=== PATIENT | female | born 1965 | race Caucasian/White ===

== ENCOUNTER 2017-10-01 17:21 | Emergency (ER) | payer SELFPAY ==
[~2017-10-01] VITALS: Ht 177.8 cm; Wt 115.0 kg
[2017-10-01 17:41] VITALS: BP 142/75; PULSE 103; RESP 20; TEMP 99.5; O2SAT 99
[2017-10-01] MEDS ORDERED: BUME1TAB PO (18:14)
[2017-10-01] MEDS ORDERED: LIDOCAINE HCL 2% 50 ML VIAL NERV BLOCK ONE (18:30)
[2017-10-01] MEDS ORDERED: CLINDAMYCIN 600 MG/NS PREMIX 50 ML IV ONE (18:45)
[2017-10-01] MEDS ORDERED: SODIUM CHLOR 0.9% 1000 ML INJ 1,000 ML IV ONE (18:45)
[2017-10-01] MEDS ORDERED: CLIN300C5 PO (19:19)
[2017-10-01] MEDS ORDERED: DICL75TA PO (19:21)
--- NOTE | 2017-10-01 19:22 | PD ---
HPI Chief Complaint: Skin Problem Time Seen by Provider: 18:04 Travel History International Travel<30 days: No Contact w/Intl Traveler<30days: No History of Present Illness HPI 52-year-old female presents emergency department with a lesion to her left upper back for 2 weeks. States that she does have a history of abscesses and believes this may be an abscess. Patient states that it started off as a small pruritic lesion and has enlarged to the size it is today. Patient denies fevers or chills, denies nausea, vomiting, diarrhea. States she has been taking the maximum dose of excedrin for several days. She has a history of MRSA , COPD. She does not have a primary care physician. She does not take steroids. PFSH Past Medical History COPD: Yes Diminished Hearing: No Respiratory: Yes (COPD) Integumentary: Yes (MRSA) Tetanus Vaccination: > 5 Years Influenza Vaccination: No ?: Not : 0 Para: 0 Past Surgical History Hysterectomy: Yes Social History Alcohol Use: No Tobacco Use: Yes (1 pack per day) Substance Use: No Allergies-Medications (Allergen,Severity, Reaction): Coded Allergies: tetanus toxoid, adsorbed (Verified Allergy, Severe, ARM SWELLING, 10/01/17) codeine (Verified Adverse Reaction, Severe, Nausea/Vomiting, 10/01/17) Reported Meds & Prescriptions Reported Meds & Active Scripts Active Diclofenac Sodium DR (Diclofenac Sodium) 75 Mg Tabdr 75 Mg PO BID Avoid any other anti-inflammatory while taking this medication. Clindamycin (Clindamycin HCl) 300 Mg Cap 300 Mg PO Q6H 7 Days Reported Bumetanide 1 Mg Tab 1 Mg PO DAILY Review of Systems Except as stated in HPI: all other systems reviewed are Neg Physical Exam Narrative GENERAL: WD, WN SKIN: Focused skin assessment warm/dry. Left upper back-large 6" x 3" area of induration with central erythema. 2 areas of fluctuation, left fluctuation with puncta. Right area with small puncta. No lymph angiopathic spread. HEAD: Atraumatic. Normocephalic. EYES: Pupils equal and round. No scleral icterus. No injection or drainage. ENT: No nasal bleeding or discharge. Mucous membranes pink and moist. NECK: Trachea midline. No JVD. No lymphadenopathy CARDIOVASCULAR: Regular rate and rhythm. No murmur appreciated. RESPIRATORY: No accessory muscle use. Clear to auscultation. Breath sounds equal bilaterally. GASTROINTESTINAL: Abdomen soft, non-tender, nondistended. MUSCULOSKELETAL: No obvious deformities. No clubbing. No cyanosis. No edema. NEUROLOGICAL: Awake and alert. No obvious cranial nerve deficits. Motor grossly within normal limits. Normal speech. PSYCHIATRIC: Appropriate mood and affect; insight and judgment normal. Data Data Last Documented VS Vital Signs Date Time Temp Pulse Resp B/P (MAP) Pulse Ox O2 Delivery O2 Flow Rate FiO2 10/01/17 18:15 98 17 10/01/17 17:41 99.5 142/75 (97) 99 Orders Orders Lidocaine 2% Inj (Xylocaine 2% Inj) (10/01/17 18:30) Wound Culture And Gram Stain (10/01/17 18:23) Clindamycin 600 Mg/Ns Premix (Cleocin 60 (10/01/17 18:45) Sodium Chlor 0.9% 1000 Ml Inj (Ns 1000 M (10/01/17 18:45) Ed Discharge Order (10/01/17 20:10) [facility] Medical Decision Making Medical Screen Exam Complete: Yes Emergency Medical Condition: Yes Differential Diagnosis Abscess, cellulitis, erysipelas Narrative Course 52-year-old female presents emergency department with a lesion to her left upper back for 2 weeks. States that she does have a history of abscesses and believes this may be an abscess. Patient states that it started off as a small pruritic lesion and has enlarged to the size it is today. Patient denies fevers or chills, denies nausea, vomiting, diarrhea. States she has been taking the maximum dose of excedrin for several days. She has a history of MRSA , COPD. She does not have a primary care physician. She does not take steroids. Vital signs stable. Physical findings consistent with a large abscess to the left upper back. No lymph angiopathic spread. Incision and drainage performed due to areas of the abscess. Clindamycin 600 mg administered IV. 1 L normal saline IV fluids administered. Patient advised to follow-up within 24 hours for wound assessment. Advised she should take her medications as prescribed. Patient states that she has had good success regarding pain relief with diclofenac. Prescription given. Advised that if her symptoms persist or worsen to return to the emergency department immediately. She states understanding and will comply. Procedures Procedure Narrative INCISION AND DRAINAGE OF ABSCESS: The left portion of the abscess was prepped and was sterilely draped. A subcutaneous wheal of 2% % Xylocaine without epi with a total number 1 mL was used to anesthetize the area properly. A number 11 scalpel was used to make a 1-cm incision across the area of the abscess, through the puncta. The abscess was drained, complex loculations were broken down, and irrigated with normal saline. Cultures were obtained. Quarter inch iodoform packing was placed in the wound. Sterile dressing applied. Patient advised to have packing removed in two days. INCISION AND DRAINAGE OF ABSCESS: The right portion of the was prepped and was sterilely draped. A subcutaneous wheal of 2 % Xylocaine without epinephrine with a total number 1 mL was used to anesthetize the area properly. A number 11 scalpel was used to make a 1-cm incision across the area of the abscess, there is very small puncta. The abscess was drained, complex loculations were broken down, and irrigated with normal saline. Cultures were obtained. Quarter inch iodoform packing was placed in the wound. Sterile dressing applied. Patient advised to have packing removed in two days. Diagnosis Primary Impression: Abscess Referrals: [facility] Additional Instructions: Return to the emergency department for wound check within 24 hours. Keep area clean and dry until you return to the emergency department and you are reevaluated. You may bathe as normal but keep the area dry. Change dressings daily at the site becomes overly wet or starts to follow-up. If he developed increased redness, swelling, or pain return to the emergency department. You are being prescribed clindamycin. I recommend you take [id number] probiotics while taking this medication. Take all medication as prescribed. If you develop increased fever, nausea, vomiting return to the emergency department immediately. Scripts Diclofenac Sodium DR (Diclofenac Sodium DR) 75 Mg Tabdr 75 MG PO BID for Pain Management, #10 TAB 0 Refills Avoid any other anti-inflammatory while taking this medication. Prov: Didi Rhodes 10/01/17 Clindamycin (Clindamycin) 300 Mg Cap 300 MG PO Q6H for Infection for 7 Days, #28 CAP 0 Refills Prov: Didi Rhodes 10/01/17 Disposition: 01 DISCHARGE HOME Condition: Stable Didi Rhodes Oct 01, 2017 19:22
== END 2017-10-01 20:19 | disposition home or self-care (01) ==
LOC: NEPC 17:21
DX: L02.212 Cutaneous abscess of back [any part, except buttock and flank] (principal); B95.62 Methicillin resistant Staphylococcus aureus infection as the cause of diseases classified elsewhere; J44.9 Chronic obstructive pulmonary disease, unspecified; Z72.0 Tobacco use
CPT/HCPCS: 10061; 86403; 87070; 87186; 96374; 99284; J7030; 87205

== ENCOUNTER 2017-10-02 17:40 | Emergency (ER) | payer SELFPAY ==
[~2017-10-02] VITALS: Ht 177.8 cm; Wt 115.0 kg
[~2017-10-02 17:40] MED LIST: BUME1TAB PO; CLIN300C5 PO; DICL75TA PO
[2017-10-02 18:07] VITALS: BP 144/75; PULSE 103; RESP 20; TEMP 98.2; O2SAT 98
--- NOTE | 2017-10-02 19:27 | PD ---
HPI Chief Complaint: Wound/Suture/Staple Re-Check Time Seen by Provider: 18:19 Travel History International Travel<30 days: No Contact w/Intl Traveler<30days: No Traveled to known affect area: No History of Present Illness HPI 52-year-old female presents to the emergency room for evaluation of abscess recheck. Patient had incision and drainage of an abscess on her back last night. She was told to return in 24 hours. Patient reports improvement symptoms. She has been taking her medication as directed. She denies any fever , chills, nausea, or vomiting. PFSH Past Medical History COPD: Yes Diminished Hearing: No Respiratory: Yes (COPD) Integumentary: Yes (MRSA) Tetanus Vaccination: > 5 Years ?: Not : 0 Para: 0 Past Surgical History Hysterectomy: Yes Social History Alcohol Use: No Tobacco Use: Yes (1 pack per day) Substance Use: No Allergies-Medications (Allergen,Severity, Reaction): Coded Allergies: tetanus toxoid, adsorbed (Verified Allergy, Severe, ARM SWELLING, 10/02/17) codeine (Verified Adverse Reaction, Severe, Nausea/Vomiting, 10/02/17) Reported Meds & Prescriptions Reported Meds & Active Scripts Active Diclofenac Sodium DR (Diclofenac Sodium) 75 Mg Tabdr 75 Mg PO BID Avoid any other anti-inflammatory while taking this medication. Clindamycin (Clindamycin HCl) 300 Mg Cap 300 Mg PO Q6H 7 Days Reported Bumetanide 1 Mg Tab 1 Mg PO DAILY Review of Systems Except as stated in HPI: all other systems reviewed are Neg Physical Exam Narrative GENERAL: Well-nourished, obese female no acute distress. Afebrile. Ambulatory. SKIN: Focused skin assessment warm/dry. There is an indurated area in the left upper back which measures about 15 cm in diameter. There are 3 incisions with packing in place. There is a zone of inflammation around it but no lymphangitis. HEAD: Normocephalic. EYES: No scleral icterus. No injection or drainage. NECK: Supple, trachea midline. No JVD or lymphadenopathy. CARDIOVASCULAR: Regular rate and rhythm without murmurs, gallops, or rubs. RESPIRATORY: Breath sounds equal bilaterally. No accessory muscle use. PSYCHIATRIC: No delusional thought processes. No hallucinations. Data Data Last Documented VS Vital Signs Date Time Temp Pulse Resp B/P (MAP) Pulse Ox O2 Delivery O2 Flow Rate FiO2 10/02/17 18:07 98.2 103 20 144/75 (98) 98 MDM Medical Decision Making Medical Screen Exam Complete: Yes Emergency Medical Condition: Yes Medical Record Reviewed: Yes Differential Diagnosis Abscess, packing removal, folliculitis, cellulitis Narrative Course 52-year-old female presents to the emergency room for evaluation of abscess recheck. She came last night and had incision and drainage of an abscess on her back. Physical exam reveals a 15-20 cm abscess to the left upper back with 2 incisions and packing in place. There is surrounding erythema but no lymphangitis. No systemic signs of infection. Patient remains afebrile. Reports improvement in symptoms overall. There is an area of the abscess that is fluctuant and amendable to incision and drainage. A third incision was made with significant purulent drainage; see procedure note for details. Area was outlined in purple marker. Patient discharged with wound care instructions and told to return between 24 and 48 hours for recheck given size of abscess. Patient states she is self-pay and would prefer to keep her bill low. She would prefer not to stay in the hospital. If there is not significant improvement tomorrow, perhaps she would be a candidate for [facility]. Procedures Procedure Narrative INCISION AND DRAINAGE OF ABSCESS: The area was prepped and was sterilely draped. A subcutaneous wheal of 1% lidocaine with epinephrine with a total number 3 mL was used to anesthetize the area properly. A number 11 scalpel was used to make a 1 cm incision across the area of the abscess. The abscess was drained, complex loculations were broken down, and irrigated with normal saline. Quarter inch iodoform packing was placed in the wound. Sterile dressing applied. Patient advised to have packing removed in two days. Diagnosis Primary Impression: Abscess of back Referrals: Primary Care Physician Additional Instructions: Continue antibiotics as directed. Return in 24-48 hours for recheck or sooner if you develop fever. Follow-up with primary care physician as needed. Med/Other Pt SpecificInfo: Prescription(s) given Disposition: 01 DISCHARGE HOME Condition: Stable Birdie Jose Oct 02, 2017 19:27
--- NOTE | 2017-10-04 20:03 | MB ---
cc: Tony Hernandez MD, Joseph D MD DATE OF CONSULT: 10/04/2017 REASON FOR CONSULTATION: Large abscess to the left back/chest area resistant to outpatient therapy. HISTORY OF PRESENT ILLNESS: This is a pleasant 52-year-old female who has been in the emergency room 3 times after complaining of infection on her back, it was tried to treat as an outpatient. She initially thought it was some type of bug bite or spider bite. It has now progressed on her back. Surgery was consulted by the infectious disease doctor for drainage because of the amount of purulent material and air and gas seen on the CT scan. PAST MEDICAL HISTORY: She has had some boils in the past, has some COPD but no other chronic medical problems. She has no chest pain or shortness of breath, no abdominal discomfort, GI symptoms or symptoms. Her major complaint is as above with this large abscess to her left posterior back. ALLERGIES: TETANUS AND CODEINE. FAMILY AND SOCIAL HISTORY: Noncontributory. PHYSICAL EXAMINATION: GENERAL: She is alert, sitting up in bed, pleasant. She is in good spirits. NECK: Supple. CHEST: Clear. HEART: Regular rate. ABDOMEN: Soft. CHEST: Left posterior chest, there is a large erythematous, purulent draining abscess that is tender that basically goes from the midline down to the flank on the left side. She has 3 or 4 openings that are just draining purulent material. This has been cultured and grew out methicillin resistant Staph aureus. NEUROLOGIC: She is alert and oriented without focal deficits, somewhat concerned with her medical condition. LABORATORY DATA: She had a white count of 14, H and H of 13 and 40. Chemistry showed hemoglobin A1c of 8.9. IMAGING STUDIES: CT of the chest done shows this abscess, but they measure about 8 cm in dimension with air bubbles. Culture result are MRSA with sensitivities. Reviewed consultation repot by Dr. Burns, infectious disease, requesting surgical drainage of this large abscess. ASSESSMENT: A 52-year-old female with a large abscess resistant to medical therapy. She needs a formal debridement in the operating room. We will get things set up. She did have a little bit of soup, she says, at 2:00. I think it would be safe to bring her to the operating room about 6:00 or so. Tony Hernandez MD JELLEN/SA/cristo , 05:42 PM , 06:59 PM
== END 2017-10-02 19:59 | disposition home or self-care (01) ==
LOC: NEPK 17:40
DX: L02.212 Cutaneous abscess of back [any part, except buttock and flank] (principal); B95.62 Methicillin resistant Staphylococcus aureus infection as the cause of diseases classified elsewhere; F17.200 Nicotine dependence, unspecified, uncomplicated
CPT/HCPCS: 10061

== ENCOUNTER 2017-10-03 18:15 | Inpatient (IN) | payer SELFPAY ==
[~2017-10-03] VITALS: Ht 177.8 cm; Wt 120.2 kg
[2017-10-03 18:23] VITALS: BP 188/81; PULSE 75; RESP 18; TEMP 98.5; O2SAT 100
[2017-10-03 21:43] VITALS: BP 147/86; PULSE 92; RESP 18; O2SAT 98
[2017-10-03] MEDS ORDERED: MORPHINE SULFATE 4 MG/ML INJ IV PUSH ONE (21:45)
[2017-10-03] MEDS ORDERED: VANCOMYCIN INJ 1,250 MG in SODIUM CHLOR 0.9% 250 ML INJ 250 ML IV ONE (21:45)
[2017-10-03 22:20] LABS: AUTOMATED NEUTROPHIL # 10.4 TH/MM3 (1.8-7.7); BASOPHIL # 0.2 TH/MM3 (0-0.2); BASOPHIL % 1.1 % (0.0-2.0); EOSINOPHIL # 0.3 TH/MM3 (0-0.4); EOSINOPHIL % 2.1 % (0.0-4.0); HEMATOCRIT 40.3 % (35.0-46.0); HEMOGLOBIN 13.7 GM/DL (11.6-15.3); LYMPH % 16.8 % (9.0-44.0); LYMPHOCYTE # 2.4 TH/MM3 (1.0-4.8); MEAN CELL VOLUME 85.5 FL (80.0-100.0); MEAN CORPUSCULAR HEMOGLOBIN 29.1 PG (27.0-34.0); MEAN PLATELET VOLUME 8.4 FL (7.0-11.0); MONO % 7.4 % (0.0-8.0); MONOCYTE # 1.1 TH/MM3 (0-0.9); NEUT % 72.6 % (16.0-70.0); PLATELET COUNT 304 TH/MM3 (150-450); RED BLOOD COUNT 4.71 MIL/MM3 (4.00-5.30); RED CELL DISTRIBUTION WIDTH 13.6 % (11.6-17.2); WHITE BLOOD COUNT 14.3 TH/MM3 (4.0-11.0)
[2017-10-03 22:50] LABS: BICARBONATE 28.5 MEQ/L (21.0-32.0); CALCIUM 9.2 MG/DL (8.5-10.1); CREATININE 0.89 MG/DL (0.50-1.00)
[2017-10-03 23:02] LABS: BANDS 3 % (0-6); LYMPHOCYTES 20 % (9-44); MONOCYTES 6 % (0-8); NEUTROPHIL # MANUAL DIFF 10.3 TH/MM3 (1.8-7.7); POLYS (SEG NEUTROPHILS) 69 % (16-70); TOXIC GRANULATION 2+ (NORMAL)
[2017-10-03 23:03] LABS: TOXIC VACUOLATION PRESENT (NONE SEEN)
[2017-10-03] MEDS ORDERED: IOHEXOL 350 MG/ML 10 ML VIAL (for RAD DIAG) IVCONTRAST ONE (23:54)
--- NOTE | 2017-10-04 00:39 | RADRPT ---
EXAM DATE/TIME: 10/03/2017 23:53 [place] COMPARISON: No previous studies available for comparison. INDICATIONS : Abscess on left back. IV CONTRAST: 65 cc Omnipaque 350 (iohexol) IV RADIATION DOSE: 19.19 CTDIvol (mGy) MEDICAL HISTORY : Chronic obstructive pulmonary disease. Hypertension. SURGICAL HISTORY : Hysterectomy. Axillary lymphnode removed ENCOUNTER: Initial ACUITY: 1 day PAIN SCALE: 3/10 LOCATION: Left inferior scapular area. TECHNIQUE: Volumetric scanning of the chest was performed. Using automated exposure control and adjustment of t he mA and/or kV according to patient size, radiation dose was kept as low as reasonably achievable to obtain optimal diagnostic quality images. DICOM format image data is available electronically for review and comparison. Follow-up recommendations for detected pulmonary nodules are based at a minimum on nodule size and pa tient risk factors according to Fleischner Society Guidelines. FINDINGS: LUNGS: There is no consolidation or pneumothorax. No concerning pulmonary nodule is visualized. PLEURA: There is no pleural thickening or pleural effusion. MEDIASTINUM: The heart and great vessels demonstrate no acute abnormality. There is no mediastinal or hilar lymph adenopathy. AXILLAE: Within normal limits. No lymphadenopathy. SKELETAL: Within normal limits for patient age. MISCELLANEOUS: Induration of the subcutaneous soft tissues of the left parasagittal and lateral mid back measuring i n excess of 8 cm in oblique dimension. Induration is superficial to the paraspinal and latissimus mu scles. There is associated skin thickening. There are multiple small collections of gas medially. No drainable fluid collections seen. CONCLUSION: 1. Left paracentral lateral back subcutaneous induration and small flecks of gas suggesting abscess w ithout drainable fluid collection. 2. No focal abnormalities in the lung or mediastinum. Rivera Redd MD on October 04, 2017 at 0:34 Board Certified Radiologist. This report was verified electronically.
--- NOTE | 2017-10-04 00:48 | PD ---
HPI Chief Complaint: Wound/Suture/Staple Re-Check Time Seen by Provider: 21:33 Travel History International Travel<30 days: No Contact w/Intl Traveler<30days: No Traveled to known affect area: No History of Present Illness HPI Patient is a 52-year-old female who comes in complaining of pain and swelling to her back. This is her third visit for this. She has been here twice in the past few days and had areas drained and packed. She has been on clindamycin, without improvement of her symptoms. She has been taking ibuprofen without relief of her pain. She is a diabetic and has been out of her medication since July. She denies any fever or chills. Severity is moderate. PFSH Past Medical History COPD: Yes Diabetes: Yes Patient Takes Glucophage: No Diminished Hearing: No Respiratory: Yes (hx pulmonary htn) Integumentary: Yes (Chronic cysts, MRSA) Tetanus Vaccination: Unknown Influenza Vaccination: No ?: Not : 0 Para: 0 Past Surgical History Hysterectomy: Yes Other Surgery: Yes (bilateral axillary lymph nodes removed, pilonidal cyst removed) Social History Alcohol Use: No Tobacco Use: Yes (1 pack per day) Substance Use: No Allergies-Medications (Allergen,Severity, Reaction): Coded Allergies: tetanus toxoid, adsorbed (Verified Allergy, Severe, ARM SWELLING, 10/03/17) codeine (Verified Adverse Reaction, Severe, Nausea/Vomiting, 10/03/17) Reported Meds & Prescriptions Reported Meds & Active Scripts Active Diclofenac Sodium DR (Diclofenac Sodium) 75 Mg Tabdr 75 Mg PO BID Avoid any other anti-inflammatory while taking this medication. Clindamycin (Clindamycin HCl) 300 Mg Cap 300 Mg PO Q6H 7 Days Reported Bumetanide 1 Mg Tab 1 Mg PO DAILY Review of Systems Except as stated in HPI: all other systems reviewed are Neg General / Constitutional: No: Fever, Chills HENT: No: Headaches, Lightheadedness Cardiovascular: No: Chest Pain or Discomfort Respiratory: No: Shortness of Breath Gastrointestinal: No: Nausea, Vomiting Skin: Positive Change in Pigmentation, Positive Lesions Neurologic: No: Weakness, Dizziness Physical Exam Narrative GENERAL: Awake and alert, in no acute distress. SKIN: 8 cm area of erythema and warmth to the left side of the back. 3 incisions with packing in place. Entire area is indurated with small areas of fluctuance. HEAD: Atraumatic. Normocephalic. EYES: Pupils equal and round. No scleral icterus. ENT: Mucous membranes pink and moist. NECK: Trachea midline. No JVD. CARDIOVASCULAR: Regular rate and rhythm. No murmur appreciated. RESPIRATORY: No accessory muscle use. Clear to auscultation. Breath sounds equal bilaterally. GASTROINTESTINAL: Abdomen soft, non-tender, nondistended. MUSCULOSKELETAL: No obvious deformities. No clubbing. No cyanosis. No edema. NEUROLOGICAL: Awake and alert. No obvious cranial nerve deficits. Motor grossly within normal limits. Normal speech. PSYCHIATRIC: Appropriate mood and affect; insight and judgment normal. Data Data Last Documented VS Vital Signs Date Time Temp Pulse Resp B/P (MAP) Pulse Ox O2 Delivery O2 Flow Rate FiO2 10/03/17 22:35 18 10/03/17 21:43 92 147/86 (106) 98 Room Air 10/03/17 18:23 98.5 Orders Orders Iv Access Insert/Monitor (10/03/17 21:39) Complete Blood Count With Diff (10/03/17 21:39) Basic Metabolic Panel (Bmp) (10/03/17 21:39) Ct Thorax/ Chest W Iv Contrast (10/03/17 ) Vancomycin Inj (Vancomycin Inj) (10/03/17 21:45) Morphine Inj (Morphine Inj) (10/03/17 21:45) Iohexol 350 Inj (Omnipaque 350 Inj) (10/03/17 23:54) Labs Laboratory Tests Test 10/03/17 21:52 White Blood Count 14.3 TH/MM3 Red Blood Count 4.71 MIL/MM3 Hemoglobin 13.7 GM/DL Hematocrit 40.3 % Mean Corpuscular Volume 85.5 FL Mean Corpuscular Hemoglobin 29.1 PG Mean Corpuscular Hemoglobin Concent 34.0 % Red Cell Distribution Width 13.6 % Platelet Count 304 TH/MM3 Mean Platelet Volume 8.4 FL Neutrophils (%) (Auto) 72.6 % Lymphocytes (%) (Auto) 16.8 % Monocytes (%) (Auto) 7.4 % Eosinophils (%) (Auto) 2.1 % Basophils (%) (Auto) 1.1 % Neutrophils # (Auto) 10.4 TH/MM3 Lymphocytes # (Auto) 2.4 TH/MM3 Monocytes # (Auto) 1.1 TH/MM3 Eosinophils # (Auto) 0.3 TH/MM3 Basophils # (Auto) 0.2 TH/MM3 CBC Comment AUTO DIFF Differential Total Cells Counted 100 Neutrophils % (Manual) 69 % Band Neutrophils % 3 % Lymphocytes % 20 % Monocytes % 6 % Eosinophils % 2 % Neutrophils # (Manual) 10.3 TH/MM3 Differential Comment FINAL DIFF MANUAL Toxic Granulation 2+ Toxic Vacuolation PRESENT Platelet Estimate NORMAL Platelet Morphology Comment NORMAL Basophilic Stippling FAINT Blood Urea Nitrogen 17 MG/DL Creatinine 0.89 MG/DL Random Glucose 165 MG/DL Calcium Level 9.2 MG/DL Sodium Level 137 MEQ/L Potassium Level 3.7 MEQ/L Chloride Level 100 MEQ/L Carbon Dioxide Level 28.5 MEQ/L Anion Gap 9 MEQ/L Estimat Glomerular Filtration Rate 67 ML/MIN [facility] Medical Decision Making Medical Screen Exam Complete: Yes Emergency Medical Condition: Yes Medical Record Reviewed: Yes Differential Diagnosis Abscess versus cellulitis versus deep tissue infection Narrative Course Patient is a 52-year-old female who comes in complaining of pain and swelling to the left side of her back. Exam shows a large area of erythema and 3 incisions that were packed. This packing was removed, the incisions began to pour out pus. IV established, labs sent. Labs show an elevated white blood cell count of 14. Patient given IV fluids, antibiotics, pain medicine. CT performed shows large area of cellulitis with small areas of gas, but no drainable collection of fluid. Patient has failed outpatient therapy, she requires admission for further treatment. Diagnosis Primary Impression: Cellulitis Qualified Codes: L03.312 - Cellulitis of back [any part except buttock] Additional Impression: Abscess Admitting Information Admitting Physician Requests: Admit America Smith MD Oct 04, 2017 00:48
[2017-10-04] MEDS ORDERED: MAGNESIUM HYDROXIDE SUSP 30 ML CUP PO PRN (01:00)
[2017-10-04] MEDS ORDERED: GLUCAGON 1 MG/ML VIAL OTHER PRN ×2 (01:00)
[2017-10-04] MEDS ORDERED: DEXTROSE 50% IN WATER 50 ML VIAL(D50) IV PUSH PRN (01:00)
[2017-10-04] MEDS ORDERED: LACTULOSE SYRUP 20 GM/30 ML CUP PO PRN (01:00)
[2017-10-04] MEDS ORDERED: SENNOSIDES 8.6 MG TAB PO PRN (01:00)
[2017-10-04] MEDS ORDERED: BISACODYL 10 MG SUPP RECTAL PRN (01:00)
[2017-10-04] MEDS ORDERED: ACETAMINOPHEN 325 MG TAB PO PRN (01:00)
[2017-10-04] MEDS ORDERED: MORPHINE SULFATE 4 MG/ML INJ IV PUSH ONE (01:00)
[2017-10-04] MEDS ORDERED: Vancomycin Consult Pharmacy 1 EA OTHER SCH (01:00)
[2017-10-04] MEDS ORDERED: ONDANSETRON HCL 4 MG/2 ML VIAL IVP PRN (01:00)
[2017-10-04] MEDS ORDERED: SODIUM CHLORIDE 0.9% FLUSH 10 ML FLUSH IV FLUSH PRN (01:00)
--- NOTE | 2017-10-04 01:40 | HHI.HP ---
HPI Service [facility] Primary Care Physician No Primary Care Physician Admission Diagnosis cellulitis, abscess Diagnoses: (1) Sepsis Diagnosis: Principal (2) Abscess Diagnosis: Principal (3) Failure of outpatient treatment Diagnosis: Principal (4) Tobacco abuse Diagnosis: Principal (5) DM (diabetes mellitus) Diagnosis: Principal Travel History International Travel<30 Days: No Contact w/Intl Traveler <30 Da: No Traveled to Known Affected Are: No History of Present Illness This is a 52-year-old female with a PMH of HTN, DM, COPD, H/o Recurrent Abscess and Tobacco Abuse who presents the ER for a wound check. Initial presentation for c/o back pain w/ abscess, s/p I&D and d/c'd on Clinda 300mg po q6h. Returned to ER for wound re-check on 10/02/17, had 2nd abscess I&D'd and was instructed to continue w/ antibiotics. Returns today w/ ongoing symptoms. Denies fever or chills. Reports back pain, constant, severe, 8/10, non- radiating. Wound Cultures from 10/01/17 +MRSA, s/p Vanc in ER. CT Chest w/ left paracentral lateral back subcutaneous induration and small flecks of gas suggesting abscess, no drainable fluid collection. BP 188/81, HR 75, O2 sat 100 % on RA, Afebrile. WBC 14.3. GFR 67. Review of Systems Except as stated in HPI: all other systems reviewed are Neg ROS: 14 point review of systems otherwise negative. Past Family Social History Past Medical History PMH: HTN, DM, COPD, H/o Recurrent Abscess and Tobacco Abuse Past Surgical History PAST SURGICAL HISTORY: Pilonidal Cyst Removal, Bilateral Axillary Abscess, Hysterectomy Allergies: Coded Allergies: tetanus toxoid, adsorbed (Verified Allergy, Severe, ARM SWELLING, 10/03/17) codeine (Verified Adverse Reaction, Severe, Nausea/Vomiting, 10/03/17) Family History PAST FAMILY HISTORY: Reviewed. No h/o DM or CAD Social History PAST SOCIAL HISTORY: Positive for tobacco. Negative for alcohol or drugs. Physical Exam Vital Signs Vital Signs Date Time Temp Pulse Resp B/P (MAP) Pulse Ox O2 Delivery O2 Flow Rate FiO2 10/03/17 22:35 18 10/03/17 21:43 92 18 147/86 (106) 98 Room Air 10/03/17 18:23 98.5 75 18 188/81 (116) 100 Physical Exam PE: GENERAL: Very pleasant middle-aged white female in no acute distress. HEENT: PERRLA, EOMI. No scleral icterus or conjunctival pallor. No lid lag or facial droop. CARDIOVASCULAR: Regular rate and rhythm. No obvious murmurs to auscultation. No chest tenderness to palpation. RESPIRATORY: No obvious rhonchi or wheezing. Clear to auscultation. Breath sounds equal bilaterally. GASTROINTESTINAL: Abdomen soft, non-tender, nondistended. BS normal. MUSCULOSKELETAL: Extremities without clubbing, cyanosis, or edema. No obvious deformities. Left back w/ significant erythema/induration, 3 areas of purulent drainage. NEUROLOGICAL: Awake, alert and oriented x4. No focal neurologic deficits. Moving both upper and lower extremities spontaneously. Laboratory Laboratory Tests Test 10/03/17 21:52 White Blood Count 14.3 Red Blood Count 4.71 Hemoglobin 13.7 Hematocrit 40.3 Mean Corpuscular Volume 85.5 Mean Corpuscular Hemoglobin 29.1 Mean Corpuscular Hemoglobin Concent 34.0 Red Cell Distribution Width 13.6 Platelet Count 304 Mean Platelet Volume 8.4 Neutrophils (%) (Auto) 72.6 Lymphocytes (%) (Auto) 16.8 Monocytes (%) (Auto) 7.4 Eosinophils (%) (Auto) 2.1 Basophils (%) (Auto) 1.1 Neutrophils # (Auto) 10.4 Lymphocytes # (Auto) 2.4 Monocytes # (Auto) 1.1 Eosinophils # (Auto) 0.3 Basophils # (Auto) 0.2 CBC Comment AUTO DIFF Differential Total Cells Counted 100 Neutrophils % (Manual) 69 Band Neutrophils % 3 Lymphocytes % 20 Monocytes % 6 Eosinophils % 2 Neutrophils # (Manual) 10.3 Differential Comment FINAL DIFF MANUAL Toxic Granulation 2+ Toxic Vacuolation PRESENT Platelet Estimate NORMAL Platelet Morphology Comment NORMAL Basophilic Stippling FAINT Blood Urea Nitrogen 17 Creatinine 0.89 Random Glucose 165 Calcium Level 9.2 Sodium Level 137 Potassium Level 3.7 Chloride Level 100 Carbon Dioxide Level 28.5 Anion Gap 9 Estimat Glomerular Filtration Rate 67 Result Diagram: 10/03/17215110/03/172151 Caprini VTE Risk Assessment Caprini VTE Risk Assessment: No/Low Risk (score <= 1) Caprini Risk Assessment Model Point Value = 1 Point Value = 2 Point Value = 3 Point Value = 5 Age 41-60 Minor surgery BMI > 25 kg/m2 Swollen legs Varicose veins or History of unexplained or recurrent spontaneous Oral contraceptives or hormone replacement Sepsis (< 1 month) Serious lung disease, including pneumonia (< 1 month) Abnormal pulmonary function Acute myocardial infarction Congestive heart failure (< 1 month) History of inflammatory bowel disease Medical patient at bed rest Age 61-74 Arthroscopic surgery Major open surgery (> 45 min) Laparoscopic surgery (> 45 min) Malignancy Confined to bed (> 72 hours) Immobilizing plaster cast Central venous access Age >= 75 History of VTE Family history of VTE Factor V Leiden Prothrombin [id number] Lupus anticoagulant Anticardiolipin antibodies Elevated serum homocysteine Heparin-induced thrombocytopenia Other congenital or acquired thrombophilia Stroke (< 1 month) Elective arthroplasty Hip, pelvis, or leg fracture Acute spinal cord injury (< 1 month) Prophylaxis Regimen Total Risk Factor Score Risk Level Prophylaxis Regimen 0-1 Low Early ambulation 2 Moderate Order ONE of the following: *Sequential Compression Device (SCD) *Heparin 5000 units SQ BID 3-4 Higher Order ONE of the following medications: *Heparin 5000 units SQ TID *Enoxaparin/Lovenox 40 mg SQ daily (WT < 150 kg, CrCl > 30 mL/min) *Enoxaparin/Lovenox 30 mg SQ daily (WT < 150 kg, CrCl > 10-29 mL/min) *Enoxaparin/Lovenox 30 mg SQ BID (WT < 150 kg, CrCl > 30 mL/min) AND/OR *Sequential Compression Device (SCD) 5 or more Highest Order ONE of the following medications: *Heparin 5000 units SQ TID (Preferred with Epidurals) *Enoxaparin/Lovenox 40 mg SQ daily (WT < 150 kg, CrCl > 30 mL/min) *Enoxaparin/Lovenox 30 mg SQ daily (WT < 150 kg, CrCl > 10-29 mL/min) *Enoxaparin/Lovenox 30 mg SQ BID (WT < 150 kg, CrCl > 30 mL/min) AND *Sequential Compression Device (SCD) Assessment and Plan Problem List: (1) Sepsis ICD Code: A41.9 - Sepsis, unspecified organism (2) Abscess ICD Code: L02.91 - Cutaneous abscess, unspecified Status: Acute (3) Failure of outpatient treatment ICD Code: Z78.9 - Other specified health status (4) DM (diabetes mellitus) ICD Code: E11.9 - Type 2 diabetes mellitus without complications (5) Tobacco abuse ICD Code: Z72.0 - Tobacco use Assessment and Plan A/P: 1. Sepsis: HR 92, WBC 14.3 w/ toxic granulation/vacuolation. S/p Vanc in ER, will continue w/ IV Abx. 2. Abscess: h/o multiple abscesses in the past, 3 areas of abscess on back, s/ p I&D. Wound Cultures 10/01/17 +MRSA. Continue Vanc IV, IVF for hydration. May need Gen Sx to evaluate for I&D. Consult Wound Management. 3. Failed Outpatient Tx: 3rd ER visit since 10/01/17, on Clinda 300mg po q6h w / worsening infection. IV Vanc. 4. DM: Sliding scale w/ Accu-Cheks. Check Hgb A1c 5. Tobacco Abuse: Pt counselled. NicoDerm prn if needed. 6. DVT Prophylaxis: SCD/Teds. 7. Social work for d/c planning as needed. 8. Case discussed w/ ER physician at length, labs/records/imaging reviewed by me. Physician Certification 2 Midnight Certification Type: Admission for Inpatient Services Order for Inpatient Services The services are ordered in accordance with Medicare regulations or non- Medicare payer requirements, as applicable. In the case of services not specified as inpatient-only, they are appropriately provided as inpatient services in accordance with the 2-midnight benchmark. Estimated LOS (days): 2 days is the estimated time the patient will need to remain in the hospital, assuming treatment plan goals are met and no additional complications. Post-Hospital Plan: Not yet determined Frieda Cali MD Oct 04, 2017 01:40
[2017-10-04 01:45] VITALS: BP 209/94; PULSE 96; RESP 18; O2SAT 96
[2017-10-04] MEDS: SODIUM CHLOR 0.9% 1000 ML INJ 1,000 ML IV SCH ×3 (01:50→21:25)
[2017-10-04] MEDS ORDERED: VANCOMYCIN 500 MG/NS 100 ML IV SCH ×2 (02:00)
[2017-10-04] MEDS ORDERED: METOPROLOL TARTRATE 5 MG/5 ML VIAL IV PUSH ONE (02:00)
[2017-10-04 02:13] VITALS: BP 147/69; PULSE 92; RESP 20; O2SAT 95
[2017-10-04] MEDS ORDERED: MELATONIN 5 MG TAB PO ONE (03:00)
[2017-10-04] MEDS: INSULIN ASPART SUPPLEMENTAL SCALE SQ SCH ×4 (08:00→21:00)
[2017-10-04] MEDS: DOCUSATE SODIUM 50 MG/SENNA 8.6 MG TAB PO SCH ×2 (09:00→22:10)
[2017-10-04] MEDS: SODIUM CHLORIDE 0.9% FLUSH 10 ML FLUSH IV FLUSH SCH ×2 (09:00→21:00)
[2017-10-04] MEDS: MORPHINE SULFATE 2 MG/ML INJ IV PUSH PRN ×3 (09:09→22:11)
[2017-10-04 09:30] VITALS: BP 185/84; PULSE 86; RESP 18; TEMP 97.8; O2SAT 95
--- NOTE | 2017-10-04 09:42 | HHI.PR ---
Subjective Remarks This is a 52-year-old female with a PMH of HTN, DM, COPD, H/o Recurrent Abscess and Tobacco Abuse who presents the ER for a wound check. Initial presentation for c/o back pain w/ abscess, s/p I&D and d/c'd on Clinda 300mg po q6h. Returned to ER for wound re-check on 10/02/17, had 2nd abscess I&D'd and was instructed to continue w/ antibiotics. Returns today w/ ongoing symptoms. Denies fever or chills. Reports back pain, constant, severe, 8/10, non- radiating. Wound Cultures from 10/01/17 +MRSA, s/p Vanc in ER. CT Chest w/ left paracentral lateral back subcutaneous induration and small flecks of gas suggesting abscess, no drainable fluid collection. BP 188/81, HR 75, O2 sat 100 % on RA, Afebrile. WBC 14.3. GFR 67. 3-3 TO SEE ID TODAY MRSA FROM CULTURES WILL NEED DIFFERENT ANTIBIOTICS THEN PRIOR TO ADMISSION DUE TO SENSITIVITIES WILL NEED GENERAL SURGERY CONSULT FOR ID OF BACK ABSCESS DW RN AND PT AND ID Objective Vitals Vital Signs Date Time Temp Pulse Resp B/P (MAP) Pulse Ox O2 Delivery O2 Flow Rate FiO2 10/04/17 09:30 97.8 86 18 185/84 (117) 95 10/04/17 02:30 (95) 10/04/17 02:13 92 20 147/69 (95) 95 Room Air 10/04/17 01:45 96 18 209/94 (132) 96 10/03/17 22:35 18 10/03/17 21:43 92 18 147/86 (106) 98 Room Air 10/03/17 18:23 98.5 75 18 188/81 (116) 100 I/O 10/03/17 10/03/17 10/03/17 10/04/17 10/04/17 10/04/17 07:00 15:00 23:00 07:00 15:00 23:00 Intake Total 802.5 ml Balance 802.5 ml Intake Oral 240 ml IV Total 562.5 ml # Voids 2 Result Diagram: 10/03/17215110/03/172151 Other Results Laboratory Tests Test 10/03/17 21:52 10/04/17 05:12 White Blood Count 14.3 TH/MM3 Red Blood Count 4.71 MIL/MM3 Hemoglobin 13.7 GM/DL Hematocrit 40.3 % Mean Corpuscular Volume 85.5 FL Mean Corpuscular Hemoglobin 29.1 PG Mean Corpuscular Hemoglobin Concent 34.0 % Red Cell Distribution Width 13.6 % Platelet Count 304 TH/MM3 Mean Platelet Volume 8.4 FL Neutrophils (%) (Auto) 72.6 % Lymphocytes (%) (Auto) 16.8 % Monocytes (%) (Auto) 7.4 % Eosinophils (%) (Auto) 2.1 % Basophils (%) (Auto) 1.1 % Neutrophils # (Auto) 10.4 TH/MM3 Lymphocytes # (Auto) 2.4 TH/MM3 Monocytes # (Auto) 1.1 TH/MM3 Eosinophils # (Auto) 0.3 TH/MM3 Basophils # (Auto) 0.2 TH/MM3 CBC Comment AUTO DIFF Differential Total Cells Counted 100 Neutrophils % (Manual) 69 % Band Neutrophils % 3 % Lymphocytes % 20 % Monocytes % 6 % Eosinophils % 2 % Neutrophils # (Manual) 10.3 TH/MM3 Differential Comment FINAL DIFF MANUAL Toxic Granulation 2+ Toxic Vacuolation PRESENT Platelet Estimate NORMAL Platelet Morphology Comment NORMAL Basophilic Stippling FAINT Blood Urea Nitrogen 17 MG/DL Creatinine 0.89 MG/DL Random Glucose 165 MG/DL Calcium Level 9.2 MG/DL Sodium Level 137 MEQ/L Potassium Level 3.7 MEQ/L Chloride Level 100 MEQ/L Carbon Dioxide Level 28.5 MEQ/L Anion Gap 9 MEQ/L Estimat Glomerular Filtration Rate 67 ML/MIN Imaging Last Impressions Chest CT 10/03/17 0000 Signed Impressions: Service Date/Time: Tuesday, October 03, 2017 23:53 - CONCLUSION: 1. Left paracentral lateral back subcutaneous induration and small flecks of gas suggesting abscess without drainable fluid collection. 2. No focal abnormalities in the lung or mediastinum. Rivera Redd MD Objective Remarks GENERAL: Very pleasant middle-aged white female in no acute distress SKIN: Warm and dry. Left back with significant erythema and induration from 3 years of purulent drainage HEAD: Atraumatic. Normocephalic. EYES: Pupils equal and round. No scleral icterus. No injection or drainage. Extraocular muscles intact ENT: No nasal bleeding or discharge. Mucous membranes pink and moist. NECK: Trachea midline. No JVD. CARDIOVASCULAR: Regular rate and rhythm. S1-S2 no S3 or S4 RESPIRATORY: No accessory muscle use. Clear to auscultation. Breath sounds equal bilaterally. Left back with significant erythema and induration with the 3 areas of purulent drainage GASTROINTESTINAL: Abdomen soft, non-tender, nondistended. Hepatic and splenic margins not palpable. Obese MUSCULOSKELETAL: Extremities without clubbing, cyanosis, or edema. No obvious deformities. NEUROLOGICAL: Awake and alert. No obvious cranial nerve deficits. Motor grossly within normal limits. Five out of 5 muscle strength in the arms and legs. Normal speech. PSYCHIATRIC: Appropriate mood and affect; insight and judgment normal. Medications and IVs Current Medications Vancomycin HCl 1250 mg/Sodium Chloride 262.5 ml @ 250 mls/hr ONCE ONCE IV Last administered on 10/03/17at 22:17; Start 10/03/17 at 21:45; Stop 10/03/17 at 22: 47; Status DC Morphine Sulfate (Morphine Inj) 4 mg ONCE ONCE IV PUSH Last administered on 10/03/17at 22:13; Start 10/03/17 at 21:45; Stop 10/03/17 at 21:46; Status DC Iohexol (Omnipaque 350 Inj) 65 ml STK-MED ONCE IVCONTRAST Last administered on 10/03/17at 23:54; Start 10/03/17 at 23:54; Stop 10/03/17 at 23:55; Status DC Pharmacy Profile Note 0 ml @ 0 mls/hr UNSCH OTHER ; Start 10/04/17 at 01:00 Dextrose (D50w (Vial) Inj) 50 ml UNSCH PRN IV PUSH HYPOGLYCEMIA-SEE COMMENTS; Start 10/04/17 at 01:00; Stop 10/04/17 at 01:01; Status DC Glucagon (Glucagon Inj) 1 mg UNSCH PRN OTHER HYPOGLYCEMIA-SEE COMMENTS; Start 10/04/17 at 01:00; Stop 10/04/17 at 01:01; Status DC Insulin Aspart (NovoLOG SUPPLEMENTAL SCALE) 1 ACHS SLIDING SCALE SQ Last administered on 10/04/17at 08:00; Start 10/04/17 at 08:00 Sodium Chloride 1,000 ml @ 100 mls/hr Q10H IV Last administered on 10/04/17at 01 :50; Start 10/04/17 at 00:50 Sodium Chloride (NS Flush) 2 ml UNSCH PRN IV FLUSH FLUSH AFTER USING IV ACCESS ; Start 10/04/17 at 01:00 Sodium Chloride (NS Flush) 2 ml BID IV FLUSH Last administered on 10/04/17at 09: 00; Start 10/04/17 at 09:00 Ondansetron HCl (Zofran Inj) 4 mg Q6H PRN IVP NAUSEA OR VOMITING Last administered on 10/04/17at 01:49; Start 10/04/17 at 01:00 Acetaminophen (Tylenol) 650 mg Q6H PRN PO FEVER/PAIN SCALE 1 TO 2; Start at 01:00 Morphine Sulfate (Morphine Inj) 2 mg Q3H PRN IV PUSH Pain 6-10 Last administered on 10/04/17at 09:09; Start 10/04/17 at 01:00 Senna/Docusate Sodium (Narcisa-Colace) 1 tab BID PO Last administered on 10/04/17at 09:00; Start 10/04/17 at 09:00 Magnesium Hydroxide (Milk Of Magnesia Liq) 30 ml Q12H PRN PO Mild constipation ; Start 10/04/17 at 01:00 Sennosides (Senokot) 17.2 mg Q12H PRN PO Moderate constipation; Start 10/04/17 at 01:00 Bisacodyl (Dulcolax Supp) 10 mg DAILY PRN RECTAL SEVERE CONSITIPATION / IF NPO ; Start 10/04/17 at 01:00 Lactulose (Lactulose Liq) 30 ml DAILY PRN PO SEVERE CONSITIPATION / IF PO; Start 10/04/17 at 01:00 Morphine Sulfate (Morphine Inj) 4 mg ONCE ONCE IV PUSH Last administered on 10/04/17at 01:49; Start 10/04/17 at 01:00; Stop 10/04/17 at 01:01; Status DC Dextrose (D50w (Vial) Inj) 50 ml UNSCH PRN IV PUSH HYPOGLYCEMIA - SEE COMMENTS ; Start 10/04/17 at 01:00 Glucagon (Glucagon Inj) 1 mg UNSCH PRN OTHER HYPOGLYCEMIA-SEE COMMENTS; Start 10/04/17 at 01:00 Vancomycin HCl 500 mg/Sodium Chloride 100 ml @ 200 mls/hr DAILY@0200 IV Last administered on 10/04/17at 01:50; Start 10/04/17 at 02:00; Stop 10/04/17 at 05:00; Status DC Metoprolol Tartrate (Lopressor Inj) 5 mg ONCE ONCE IV PUSH ; Start 10/04/17 at 02:00; Stop 10/04/17 at 02:01; Status DC Melatonin (Melatonin) 5 mg ONCE ONCE PO ; Start 10/04/17 at 03:00; Stop 10/04/17 at 03:01; Status DC A/P Problem List: (1) Sepsis ICD Code: A41.9 - Sepsis, unspecified organism (2) Abscess ICD Code: L02.91 - Cutaneous abscess, unspecified Status: Acute (3) Failure of outpatient treatment ICD Code: Z78.9 - Other specified health status (4) DM (diabetes mellitus) ICD Code: E11.9 - Type 2 diabetes mellitus without complications (5) Tobacco abuse ICD Code: Z72.0 - Tobacco use Assessment and Plan 1. Sepsis: HR 92, WBC 14.3 w/ toxic granulation/vacuolation. S/p Vanc in ER, will continue w/ IV Abx. 2. Abscess: h/o multiple abscesses in the past, 3 areas of abscess on back, s/ p I&D. Wound Cultures 10/01/17 +MRSA. Continue Vanc IV, IVF for hydration. WILL need Gen Sx to evaluate for I&D. Consult Wound Management. 3. Failed Outpatient Tx: 3rd ER visit since 10/01/17, on Clinda 300mg po q6h w / worsening infection. IV Vanc. --INFECTIOUS DISEASE CONSULT 4. DM: Sliding scale w/ Accu-Cheks. Check Hgb A1c 5. Tobacco Abuse: Pt counselled. NicoDerm prn if needed. 6. DVT Prophylaxis: SCD/Teds. 7. Social work for d/c planning as needed. 8. Case discussed w/ ER physician at length, labs/records/imaging reviewed by me. AM LABS Discharge Planning PENDING WOUND IMPROVEMENT Stevo Calderon DO Oct 04, 2017 09:42
[2017-10-04 11:52] LABS: HEMOGLOBIN A1C 8.9 % (4.3-6.0)
[2017-10-04] MEDS ORDERED: ROCURONIUM INJ 50 MG/5 ML SYRINGE IV PUSH ONE (12:00)
[2017-10-04] MEDS ORDERED: KETOROLAC TROMETHAMINE 30 MG/ML (IVP) VIAL IV PUSH ONE (12:00)
[2017-10-04] MEDS ORDERED: DEXAMETHASONE SOD PHOS 4 MG/ML VIAL IV ONE (12:00)
[2017-10-04] MEDS ORDERED: NEOSTIGMINE 5 MG/5 ML SYRINGE IV PUSH ONE (12:00)
[2017-10-04] MEDS ORDERED: SUCCINYLCHOLINE CHLORIDE 100 MG/5 ML SYRINGE IV PUSH ONE (12:00)
[2017-10-04] MEDS ORDERED: LIDOCAINE HCL 1% PF 5 ML SYRINGE OTHER ONE (12:00)
[2017-10-04] MEDS ORDERED: GLYCOPYRROLATE 1 MG/5 ML SYRINGE IV PUSH ONE (12:00)
[2017-10-04] MEDS ORDERED: ONDANSETRON HCL 4 MG/2 ML VIAL IV ONE (12:00)
[2017-10-04] MEDS ORDERED: PROPOFOL 200 MG/20 ML AMP IV ONE (12:00)
[2017-10-04] MEDS ORDERED: LABETALOL HCL 100 MG/20 ML VIAL IV ONE (12:00)
[2017-10-04] MEDS: LACTOBACILLUS ACIDOPHILUS TAB PO SCH ×2 (12:55→17:09)
[2017-10-04 12:58] VITALS: BP 126/61; PULSE 84; RESP 20; TEMP 98; O2SAT 93
--- NOTE | 2017-10-04 14:13 | PD.ID.CON ---
History of Present Illness Service ID Consult Requested By . Reason for Consult Evaluation and Mment of MRSA back abscess. Primary Care Physician No Primary Care Physician Diagnoses: History of Present Illness is a 52 y/o CF with PMH of HTN, DM, COPD, H/o Recurrent Abscess and Tobacco Abuse who presents to the ER for a wound check. Initial presentation for c/o back pain w/ abscess, s/p I&D and d/c'd on Clinda 300mg po q6h. Returned to ER for wound re-check on 10/02/17, had 2nd abscess I&D'd and was instructed to continue w/ antibiotics. Returns today w/ ongoing symptoms. Denies fever or chills. Reports back pain, constant, severe, 8/10, non- radiating. Wound Cultures from 10/01/17 +MRSA, s/p Vanc in ER. CT Chest w/ left paracentral lateral back subcutaneous induration and small flecks of gas suggesting abscess, no drainable fluid collection. BP 188/81, HR 75, O2 sat 100 % on RA, Afebrile. WBC 14.3. GFR 67. At time of my evaluation, patient is in ED/CDU. Patient is sitting in bed eating her lunch. Patient reports recurrent back and skin abscesses since she was a child. No family history of skin infections. ID consulted for evaluation and Mment of MRSA back abscess, complicated skin soft tissue infections. Review of Systems ROS Limitations: Poor Historian Constitutional: COMPLAINS OF: Fever, DENIES: Diaphoretic episodes, Fatigue, Weight gain, Weight loss, Chills, Dizziness, Change in appetite, Night Sweats Endocrine: DENIES: Abnorml menstrual pattern, Heat/cold intolerance, Polydipsia , Polyuria, Polyphagia Eyes: DENIES: Blurred vision, Diplopia, Eye inflammation, Eye pain, Vision loss , Photosensitivity, Double Vision Ears, nose, mouth, throat: DENIES: Tinnitus, Hearing loss, Vertigo, Nasal discharge, Oral lesions, Throat pain, Hoarseness, Ear Pain, Running Nose, Epistaxis, Sinus Pain, Toothache, Odynophagia Respiratory: DENIES: Apneas, Cough, Snoring, Wheezing, Hemoptysis, Sputum production, Shortness of breath Cardiovascular: DENIES: Chest pain, Palpitations, Syncope, Dyspnea on Exertion , PND, Lower Extremity Edema, Orthopnea, Claudication Gastrointestinal: DENIES: Abdominal pain, Black stools, Bloody stools, Constipation, Diarrhea, Nausea, Vomiting, Difficulty Swallowing, Anorexia Genitourinary: DENIES: Abnormal vaginal bleeding, Dysmenorrhea, Dyspareunia, Sexual dysfunction, Urinary frequency, Urinary incontinence, Urgency, Hematuria , Dysuria, Nocturia, Vaginal discharge Musculoskeletal: COMPLAINS OF: Back pain (at site of abscess.) Integumentary: COMPLAINS OF: Abnormal pigmentation, DENIES: Pruritus, Rash, Nail changes, Breast masses, Breast skin changes, Nipple discharge Hematologic/lymphatic: DENIES: Bruising, Lymphadenopathy Immunologic/allergic: DENIES: Eczema, Urticaria Neurologic: DENIES: Abnormal gait, Headache, Localized weakness, Paresthesias, Seizures, Speech Problems, Tremor, Poor Balance Psychiatric: DENIES: Anxiety, Confusion, Mood changes, Depression, Hallucinations, Agitation, Suicidal Ideation, Homicidal Ideation, Delusions Except as stated in HPI: all other systems reviewed are Neg Past Family Social History Allergies: Coded Allergies: tetanus toxoid, adsorbed (Verified Allergy, Severe, ARM SWELLING, 10/03/17) codeine (Verified Adverse Reaction, Severe, Nausea/Vomiting, 10/03/17) Past Medical History HTN, DM, COPD, H/o Recurrent Abscess Tobacco Abuse Past Surgical History Pilonidal Cyst Removal, Bilateral Axillary Abscess, Hysterectomy Recurrent abscesses. Reported Medications Reported Meds & Active Scripts Active Diclofenac Sodium DR (Diclofenac Sodium) 75 Mg Tabdr 75 Mg PO BID Avoid any other anti-inflammatory while taking this medication. Clindamycin (Clindamycin HCl) 300 Mg Cap 300 Mg PO Q6H 7 Days Reported Bumetanide 1 Mg Tab 1 Mg PO DAILY Active Ordered Medications Current Medications Medications (Trade) Dose Ordered Sig/Kit Route Start Time Stop Time Status Last Admin Pharmacy Profile Note 0 ml @ 0 mls/hr UNSCH OTHER 10/04/17 01:00 (NovoLOG SUPPLEMENTAL SCALE) 1 ACHS SLIDING SCALE SQ 10/04/17 08:00 10/04/17 12:00 Sodium Chloride 1,000 ml @ 100 mls/hr Q10H IV 10/04/17 00:50 10/04/17 01:50 (NS Flush) 2 ml UNSCH PRN IV FLUSH 10/04/17 01:00 (NS Flush) 2 ml BID IV FLUSH 10/04/17 09:00 10/04/17 09:00 (Zofran Inj) 4 mg Q6H PRN IVP 10/04/17 01:00 10/04/17 01:49 (Tylenol) 650 mg Q6H PRN PO 10/04/17 01:00 (Morphine Inj) 2 mg Q3H PRN IV PUSH 10/04/17 01:00 10/04/17 09:09 (Narcisa-Colace) 1 tab BID PO 10/04/17 09:00 10/04/17 09:00 (Milk Of Magnesia Liq) 30 ml Q12H PRN PO 10/04/17 01:00 (Senokot) 17.2 mg Q12H PRN PO 10/04/17 01:00 (Dulcolax Supp) 10 mg DAILY PRN RECTAL 10/04/17 01:00 (Lactulose Liq) 30 ml DAILY PRN PO 10/04/17 01:00 (D50w (Vial) Inj) 50 ml UNSCH PRN IV PUSH 10/04/17 01:00 (Glucagon Inj) 1 mg UNSCH PRN OTHER 10/04/17 01:00 (Lactinex) 1 tab TID PO 10/04/17 13:00 10/04/17 12:55 Family History Reviewed. No h/o DM or CAD Social History Positive for tobacco. Negative for alcohol or drugs. Physical Exam Vital Signs Vital Signs Date Time Temp Pulse Resp B/P (MAP) Pulse Ox O2 Delivery O2 Flow Rate FiO2 10/04/17 12:58 98.0 84 20 126/61 (82) 93 10/04/17 09:30 97.8 86 18 185/84 (117) 95 10/04/17 02:30 (95) 10/04/17 02:13 92 20 147/69 (95) 95 Room Air 10/04/17 01:45 96 18 209/94 (132) 96 10/03/17 22:35 18 10/03/17 21:43 92 18 147/86 (106) 98 Room Air 10/03/17 18:23 98.5 75 18 188/81 (116) 100 Physical Exam GENERAL: Obese, well-developed patient, in no apparent distress. SKIN: No rashes, ecchymoses or lesions. Cool and dry. HEAD: Atraumatic. Normocephalic. No temporal or scalp tenderness. EYES: Pupils equal round and reactive. Extraocular motions intact. No scleral icterus. No injection or drainage. ENT: Nose without bleeding, purulent drainage or septal hematoma. Throat without erythema, tonsillar hypertrophy or exudate. Uvula midline. Airway patent. NECK: Trachea midline. Supple, nontender, no meningeal signs. CARDIOVASCULAR: HS audible. RESPIRATORY: Clear to auscultation. Breath sounds equal bilaterally. GASTROINTESTINAL: Abdomen soft, non-tender, nondistended. MUSCULOSKELETAL: Extremities without clubbing, cyanosis, or edema. Back: Large abscess appears deep to fascia level if not muscle. NEUROLOGICAL: Awake and alert. Non focal exam Psych cooperative IV line sites with no e.o infection. Laboratory Laboratory Tests Test 10/03/17 21:52 10/04/17 05:12 White Blood Count 14.3 Red Blood Count 4.71 Hemoglobin 13.7 Hematocrit 40.3 Mean Corpuscular Volume 85.5 Mean Corpuscular Hemoglobin 29.1 Mean Corpuscular Hemoglobin Concent 34.0 Red Cell Distribution Width 13.6 Platelet Count 304 Mean Platelet Volume 8.4 Neutrophils (%) (Auto) 72.6 Lymphocytes (%) (Auto) 16.8 Monocytes (%) (Auto) 7.4 Eosinophils (%) (Auto) 2.1 Basophils (%) (Auto) 1.1 Neutrophils # (Auto) 10.4 Lymphocytes # (Auto) 2.4 Monocytes # (Auto) 1.1 Eosinophils # (Auto) 0.3 Basophils # (Auto) 0.2 CBC Comment AUTO DIFF Differential Total Cells Counted 100 Neutrophils % (Manual) 69 Band Neutrophils % 3 Lymphocytes % 20 Monocytes % 6 Eosinophils % 2 Neutrophils # (Manual) 10.3 Differential Comment FINAL DIFF MANUAL Toxic Granulation 2+ Toxic Vacuolation PRESENT Platelet Estimate NORMAL Platelet Morphology Comment NORMAL Basophilic Stippling FAINT Blood Urea Nitrogen 17 Creatinine 0.89 Random Glucose 165 Calcium Level 9.2 Sodium Level 137 Potassium Level 3.7 Chloride Level 100 Carbon Dioxide Level 28.5 Anion Gap 9 Estimat Glomerular Filtration Rate 67 Hemoglobin A1c 8.9 Result Diagram: 10/03/17215110/03/172151 Imaging Last Impressions Chest CT 10/03/17 0000 Signed Impressions: Service Date/Time: Tuesday, October 03, 2017 23:53 - CONCLUSION: 1. Left paracentral lateral back subcutaneous induration and small flecks of gas suggesting abscess without drainable fluid collection. 2. No focal abnormalities in the lung or mediastinum. Rivera Redd MD Assessment and Plan Assessment and Plan MRSA skin abscess of back paracentral location of left side. Complicated skin soft tissue infection. Failed Clinda but based on cultures/susceptibilities was resistant. H/o recurrent skin abscesses. Obesity. DM with A1C 8.9 Recs: Continue Vanco IV (target 10-15) Surgery consult: needs drainage for source control. Large abscess appears deep. CT with stranding in subcutaneous tissue. Check CRP. Check CK r/o myositis. Check LFTs. Follow cultures follow clinically. dw primary team surgery consult needed for source control. Angela Burns MD Oct 04, 2017 14:13
[2017-10-04] MEDS: VANCOMYCIN 1,500 MG/NS 500 ML IV SCH ×2 (16:00)
[2017-10-04 16:50] VITALS: BP 127/66; PULSE 83; RESP 19; TEMP 98.1; O2SAT 95
[2017-10-04] MEDS ORDERED: FAMOTIDINE 20 MG/2 ML VIAL ONE (19:15)
--- NOTE | 2017-10-04 20:19 | HHI.PR ---
cc: Tony Hernandez MD Immediate Post Op Note Procedure Date: Oct 04, 2017 Pre Op Diagnosis: (1) Abscess (2) Cellulitis (3) Sepsis (4) DM (diabetes mellitus) (5) Failure of outpatient treatment Post Op Diagnosis: (1) Status post incision and drainage (2) Abscess (3) Cellulitis (4) Tobacco abuse (5) Sepsis (6) DM (diabetes mellitus) (7) Failure of outpatient treatment Surgeon: Tony Hernandez Policy Services Representative(s): Please refer to OR records Procedure: Radical incision and drainage with excision of skin subcutaneous tissue and fascia of necrotic fascia subcutaneous tissue and skin Application of VAC device Defect measuring 15 x 5 cm Findings: Necrotic subcutaneous tissue fascia and skin widely debrided Complications: None Specimen(s) removed: Skin subcutaneous tissue and fascia Estimated blood loss: 50 cc Anesthesia: General Drains: None IVF Patient to: PACU Patient Condition: Good Implant/Devices: SEE IMPLANT LOG (if applicable) Date/Time of Procedure: SEE SURGICAL CARE RECORD Tony Hernandez MD Oct 04, 2017 20:19
[2017-10-04] MEDS ORDERED: DO NOT ADM ANY ANTICOAGULANT DRUGS PRN (20:37)
[2017-10-04] MEDS ORDERED: MIDAZOLAM HCL 2 MG/2 ML VIAL ONE (20:44)
--- NOTE | 2017-10-04 20:54 | MP ---
cc: Tony Hernandez MD DATE OF OPERATION: 10/04/2017 PREOPERATIVE DIAGNOSIS: Large abscess to the left posterior back measuring 15 x 5 cm. POSTOPERATIVE DIAGNOSIS: Large abscess to the left posterior back measuring 15 x 5 cm. PROCEDURE: Wide incision and drainage with excision of necrotic skin, subcutaneous tissue, fascia and adipose tissue with application of VAC device after leaving a defect 15 x 5 cm, 2 cm deep. ANESTHESIA: General. SURGEON: Tony Hernandez MD INDICATIONS: This is a pleasant 52-year-old female who developed an infection of MRSA in her left posterior back. She failed outpatient therapy. Plans were made for above. DESCRIPTION OF PROCEDURE: The patient was taken to the operating room and placed in supine position. After anesthesia, she was placed in the right lateral decubitus position, exposing the left back. The abscess goes from the midline all the way to the flank. She has 4 small openings. These somewhat interconnect with purulent material draining. We just make an elliptical incision incorporating all these draining necrotic sites, measuring 15 x 5 cm. dissect down to normal appearing subcutaneous tissue. The skin, adipose tissue and fascia, all sharply dissected free and hemostasis assured with electrocautery device, then irrigated copiously. Any other necrotic tissue was removed to normal bleeding tissue. The base is then cauterized. It is about 2-3 cm deep. We then placed the medium size VAC dressing after assured hemostasis. This then applied to the canister in typical fashion at 125 mmHg negative pressure. The patient tolerated the procedure well and had no immediate postop complications. She will require VAC dressing on Friday. Tony Hernandez MD JDB/rt , 08:25 PM , 08:52 PM HUAN
[2017-10-04 21:40] VITALS: BP 150/67; PULSE 72; RESP 20; TEMP 97.4; O2SAT 98
[2017-10-04 22:27] LABS: ALBUMIN 2.3 GM/DL (3.4-5.0); ALT (GPT) 9 U/L (10-53); AST (GOT) 5 U/L (15-37); DIRECT BILIRUBIN ADULT LESS THAN 0.1 MG/DL (0.0-0.2)
[2017-10-04 22:29] LABS: ALKALINE PHOSPHATASE 118 U/L (45-117); INDIRECT BILIRUBIN 0.2 MG/DL (0.0-0.8); TOTAL BILIRUBIN ADULT 0.3 MG/DL (0.2-1.0); TOTAL PROTEIN 5.9 GM/DL (6.4-8.2)
[2017-10-05] VITALS (12 sets, daily range): BP systolic 125–165; BP diastolic 65–72; PULSE 69–82; RESP 16–19; TEMP 97.4–98.5; O2SAT 93–100
[2017-10-05] MEDS: VANCOMYCIN 1,500 MG/NS 500 ML IV SCH ×4 (03:28→15:29)
[2017-10-05] MEDS: DOCUSATE SODIUM 50 MG/SENNA 8.6 MG TAB PO SCH ×2 (08:18→21:32)
[2017-10-05] MEDS: LACTOBACILLUS ACIDOPHILUS TAB PO SCH ×3 (08:20→18:38)
[2017-10-05] MEDS: INSULIN ASPART SUPPLEMENTAL SCALE SQ SCH ×4 (08:21→21:32)
[2017-10-05] MEDS: SODIUM CHLORIDE 0.9% FLUSH 10 ML FLUSH IV FLUSH SCH ×2 (08:21→21:32)
[2017-10-05] MEDS: SODIUM CHLOR 0.9% 1000 ML INJ 1,000 ML IV SCH ×2 (08:22→16:50)
[2017-10-05] MEDS: MORPHINE SULFATE 2 MG/ML INJ IV PUSH PRN ×3 (08:24→18:38)
[2017-10-05 09:17] LABS: AUTOMATED NEUTROPHIL # 9.9 TH/MM3 (1.8-7.7); BASOPHIL # 0.1 TH/MM3 (0-0.2); BASOPHIL % 0.6 % (0.0-2.0); EOSINOPHIL # 0.1 TH/MM3 (0-0.4); EOSINOPHIL % 0.8 % (0.0-4.0); HEMATOCRIT 35.2 % (35.0-46.0); HEMOGLOBIN 12.1 GM/DL (11.6-15.3); LYMPH % 14.9 % (9.0-44.0); LYMPHOCYTE # 1.9 TH/MM3 (1.0-4.8); MEAN CELL VOLUME 85.1 FL (80.0-100.0); MEAN CORPUSCULAR HEMOGLOBIN 29.2 PG (27.0-34.0); MEAN CORPUSCULAR HGB CONC 34.4 % (32.0-36.0); MEAN PLATELET VOLUME 8.1 FL (7.0-11.0); MONO % 5.6 % (0.0-8.0); MONOCYTE # 0.7 TH/MM3 (0-0.9); NEUT % 78.1 % (16.0-70.0); PLATELET COUNT 264 TH/MM3 (150-450); RED BLOOD COUNT 4.13 MIL/MM3 (4.00-5.30); RED CELL DISTRIBUTION WIDTH 13.4 % (11.6-17.2); WHITE BLOOD COUNT 12.6 TH/MM3 (4.0-11.0)
[2017-10-05 10:17] LABS: ALBUMIN 2.4 GM/DL (3.4-5.0); ALKALINE PHOSPHATASE 112 U/L (45-117); ALT (GPT) 9 U/L (10-53); AST (GOT) 8 U/L (15-37); BICARBONATE 28.7 MEQ/L (21.0-32.0); BLOOD UREA NITROGEN 18 MG/DL (7-18); CALCIUM 8.1 MG/DL (8.5-10.1); CHLORIDE 103 MEQ/L (98-107); CREATININE 0.77 MG/DL (0.50-1.00); FREE T4 1.37 NG/DL (0.76-1.46); GLOMERULAR FILTRATION RATE 79 ML/MIN (>89); GLUCOSE,RANDOM 223 MG/DL (74-106); MAGNESIUM 1.8 MG/DL (1.5-2.5); PHOSPHORUS 2.9 MG/DL (2.5-4.9); SODIUM (NA) 136 MEQ/L (136-145); TOTAL BILIRUBIN ADULT 0.3 MG/DL (0.2-1.0); TOTAL PROTEIN 6.1 GM/DL (6.4-8.2)
[2017-10-05 10:31] LABS: HEMOGLOBIN A1C 8.8 % (4.3-6.0)
--- NOTE | 2017-10-05 10:42 | EKG ---
Date Performed: 10/04/2017 Time Performed: 16:56:29 PTAGE: 52 years EKG: Sinus rhythm WITH SINUS ARRHYTHMIA NONSPECIFIC T-WAVE ABNORMALITY BORDERLINE ECG NO PREVIOUS TRACING DOCTOR: Andres Rivera Interpretating Date/Time 10/05/2017 10:41:25
--- NOTE | 2017-10-05 14:06 | HHI.PR ---
Subjective Remarks Follow-up for left-sided posterior large abscess status post I&D. Patient is currently doing well. Denies any chest pain, shortness of breath, fever or chills. Objective Vitals Vital Signs Date Time Temp Pulse Resp B/P (MAP) Pulse Ox O2 Delivery O2 Flow Rate FiO2 10/05/17 12:00 98.5 78 18 147/67 (93) 95 10/05/17 08:00 97.9 69 18 125/66 (85) 98 10/05/17 04:09 80 10/05/17 04:00 97.4 77 18 147/65 (92) 94 10/05/17 04:00 Room Air 10/05/17 00:39 82 10/05/17 00:00 97.4 78 19 144/72 (96) 100 10/05/17 00:00 Room Air 10/04/17 22:24 Nasal Cannula 2.00 10/04/17 21:40 97.4 72 20 150/67 (94) 98 10/04/17 21:15 98.4 76 15 143/66 (91) 100 Nasal Cannula 2 10/04/17 21:00 71 15 159/77 (104) 99 Nasal Cannula 3 10/04/17 20:45 68 17 152/70 (97) 96 Nasal Cannula 3 10/04/17 20:40 67 12 145/67 (93) 98 Nasal Cannula 3 10/04/17 20:32 98.3 62 12 145/66 (92) 95 Nasal Cannula 3 10/04/17 16:50 98.1 83 19 127/66 (86) 95 I/O 10/04/17 10/04/17 10/04/17 10/05/17 10/05/17 10/05/17 07:00 15:00 23:00 07:00 15:00 23:00 Intake Total 802.5 ml 500 ml 1257 ml 1335 ml Output Total 300 ml 0 ml 550 ml Balance 802.5 ml 200 ml 1257 ml 785 ml Intake Oral 240 ml 500 ml 0 ml 420 ml IV Total 562.5 ml 1257 ml 515 ml Other 400 ml Output Urine Total 300 ml 0 ml 500 ml Estimated Blood Loss 50 ml # Voids 2 # Bowel Movements 0 Result Diagram: 10/05/17 0901 10/05/17 0901 Imaging Last Impressions Chest CT 10/03/17 0000 Signed Impressions: Service Date/Time: Tuesday, October 03, 2017 23:53 - CONCLUSION: 1. Left paracentral lateral back subcutaneous induration and small flecks of gas suggesting abscess without drainable fluid collection. 2. No focal abnormalities in the lung or mediastinum. Rivera Redd MD Objective Remarks GENERAL: Alert, oriented 3, NAD. SKIN: Warm and dry. HEAD: Normocephalic. EYES: No scleral icterus. No injection or drainage. NECK: Supple, trachea midline. No JVD or lymphadenopathy. CARDIOVASCULAR: Regular rate and rhythm without murmurs, gallops, or rubs. RESPIRATORY: Breath sounds equal bilaterally. No accessory muscle use. GASTROINTESTINAL: Abdomen soft, non-tender, nondistended. MUSCULOSKELETAL: No cyanosis, or edema. Left paracentral abscess I&D done. Dressing on with wound VAC on. BACK: Nontender without obvious deformity. No CVA tenderness Procedures Left paracentral abscess I&D 10/04/2017. Wide incision and drainage with excision of necrotic skin, subcutaneous tissue, fascia and adipose tissue with application of VAC device after leaving a defect 15 x 5 cm, 2 cm deep. A/P Problem List: (1) Sepsis ICD Code: A41.9 - Sepsis, unspecified organism (2) Abscess ICD Code: L02.91 - Cutaneous abscess, unspecified Status: Acute (3) Failure of outpatient treatment ICD Code: Z78.9 - Other specified health status (4) DM (diabetes mellitus) ICD Code: E11.9 - Type 2 diabetes mellitus without complications (5) Tobacco abuse ICD Code: Z72.0 - Tobacco use Assessment and Plan This is a 52-year-old female with a PMH of HTN, DM, COPD, H/o Recurrent Abscess and Tobacco Abuse who presents the ER for a wound check. Initial presentation for c/o back pain w/ abscess, s/p I&D and d/c'd on Clinda 300mg po q6h. Returned to ER for wound re-check on 10/02/17, had 2nd abscess I&D'd and was instructed to continue w/ antibiotics. Wound Cultures from 10/01/17 +MRSA, s/p Vanc in ER. CT Chest w/ left paracentral lateral back subcutaneous induration and small flecks of gas suggesting abscess, no drainable fluid collection. -Sepsis (WBC 14.3, HR 92, skin abscess). -Left paracentral lateral back large abscess -Infectious disease and surgery following. Status post I&D. -Continue vancomycin (target 10-15) per infectious disease -Culture from 10/01/2017 shows MRSA growth. -If patient remains hemodynamically stable and afebrile, discharging with oral antibiotics would be an option -Diabetes mellitus -Patient was on insulin. However she has not been taking insulin due to lack of insurance. -Creatinine within normal range. We should be able to discharge patient on oral medications including metformin and perhaps glimepiride. -We will provide sliding scale insulin and start long-acting insulin Levemir 10 units nightly while in the hospital. -Good blood glucose 140-180. -Tobacco abuse -patient very clearly stated that she does not want to quit tobacco. I did encourage patient to quit tobacco especially postoperatively to help with wound healing. Full code. SCDs, ambulation. Wayne Gonzalez DO Oct 05, 2017 14:06
[2017-10-05] MEDS ORDERED: INSULIN DETEMIR 100 UNITS/ML VIAL SQ SCH (21:00)
[2017-10-06] VITALS (7 sets, daily range): BP systolic 149–191; BP diastolic 70–93; PULSE 71–88; RESP 14–18; TEMP 97.8–98.6; O2SAT 92–97
[2017-10-06] MEDS: VANCOMYCIN 1,500 MG/NS 500 ML IV SCH ×2 (03:26)
[2017-10-06] MEDS: SODIUM CHLOR 0.9% 1000 ML INJ 1,000 ML IV SCH (03:26)
[2017-10-06] MEDS ORDERED: PHARMACY ORDERED LAB ONE (03:45)
[2017-10-06] MEDS: INSULIN ASPART SUPPLEMENTAL SCALE SQ SCH ×2 (08:00→12:00)
--- NOTE | 2017-10-06 08:44 | HHI.PR ---
cc: Douglas Ward MD Subjective Subjective Notes DAILY PROGRESS NOTE FOR SURGICAL ATTENDING, DR. DOUGLAS WARD Doing well while still when she can go home Objective Vitals/I&O Vital Signs Date Time Temp Pulse Resp B/P (MAP) Pulse Ox O2 Delivery O2 Flow Rate FiO2 10/06/17 04:03 76 10/06/17 04:00 Room Air 10/06/17 04:00 98.5 14 164/78 (106) 97 10/04/17 22:24 2.00 Labs Laboratory Tests Test 10/05/17 09:01 10/06/17 03:15 White Blood Count 12.6 Red Blood Count 4.13 Hemoglobin 12.1 Hematocrit 35.2 Mean Corpuscular Volume 85.1 Mean Corpuscular Hemoglobin 29.2 Mean Corpuscular Hemoglobin Concent 34.4 Red Cell Distribution Width 13.4 Platelet Count 264 Mean Platelet Volume 8.1 Neutrophils (%) (Auto) 78.1 Lymphocytes (%) (Auto) 14.9 Monocytes (%) (Auto) 5.6 Eosinophils (%) (Auto) 0.8 Basophils (%) (Auto) 0.6 Neutrophils # (Auto) 9.9 Lymphocytes # (Auto) 1.9 Monocytes # (Auto) 0.7 Eosinophils # (Auto) 0.1 Basophils # (Auto) 0.1 CBC Comment DIFF FINAL Differential Comment Blood Urea Nitrogen 18 Creatinine 0.77 Random Glucose 223 Total Protein 6.1 Albumin 2.4 Calcium Level 8.1 Phosphorus Level 2.9 Magnesium Level 1.8 Alkaline Phosphatase 112 Aspartate Amino Transf (AST/SGOT) 8 Alanine Aminotransferase (ALT/SGPT) 9 Total Bilirubin 0.3 Sodium Level 136 Potassium Level 4.2 Chloride Level 103 Carbon Dioxide Level 28.7 Anion Gap 4 Estimat Glomerular Filtration Rate 79 Hemoglobin A1c 8.8 Free Thyroxine 1.37 Thyroid Stimulating Hormone 3rd Gen 0.953 Vancomycin Level Trough 13.1 Radiology Last Impressions Chest CT 10/03/17 0000 Signed Impressions: Service Date/Time: Tuesday, October 03, 2017 23:53 - CONCLUSION: 1. Left paracentral lateral back subcutaneous induration and small flecks of gas suggesting abscess without drainable fluid collection. 2. No focal abnormalities in the lung or mediastinum. Rivera Redd MD Cardiovascular: Regular Lungs: Clear Narrative Exam VAC in place on the back To be changed today A/P Problem List: (1) Status post incision and drainage ICD Codes: Z98.890 - Other specified postprocedural states Status: Acute (2) Abscess ICD Codes: L02.91 - Cutaneous abscess, unspecified Status: Acute (3) Cellulitis ICD Codes: L03.90 - Cellulitis, unspecified Status: Acute (4) Tobacco abuse ICD Codes: Z72.0 - Tobacco use (5) DM (diabetes mellitus) ICD Codes: E11.9 - Type 2 diabetes mellitus without complications (6) Failure of outpatient treatment ICD Codes: Z78.9 - Other specified health status Assessment and Plan 52-year-old female with large abscess to her left back treated with incision and drainage and VAC. Patient would benefit from outpatient VAC therapy once arrangements made VAC to be changed today by nursing personnel Follow-up in my office in 1 week's time Antibiotic therapy as per ID Attending Statement NOTE FOR SURGICAL ATTENDING, DR. DOUGLAS WARD I attest that I had a [id number] encounter with the patient on the same day, and personally performed and documented my assessment and findings in the medical record. The following services were provided during this hospital visit: Chart data review, vital sign assessments/reviewing monitor data Review of consultations notes if present. Medication orders/review and/or management Ordering and/or reviewing lab tests Ordering and/or interpreting/reviewing x-rays and/or diagnostic studies Care of the patient and discussion of the patient with the care team Documentation time To help prompt me to consider important information that might be impacting today's encounter and assessment, information from prior notes written by myself or my colleagues may have been "brought forward/copy and pasted" into today's note. Problem Qualifiers (1) Cellulitis: Qualified Codes: L03.312 - Cellulitis of back [any part except buttock] Douglas Ward MD Oct 06, 2017 08:44
[2017-10-06] MEDS ORDERED: amLODIPine BESYLATE 5 MG TAB PO SCH (09:00)
[2017-10-06] MEDS: DOCUSATE SODIUM 50 MG/SENNA 8.6 MG TAB PO SCH (09:15)
[2017-10-06] MEDS: LACTOBACILLUS ACIDOPHILUS TAB PO SCH ×2 (09:15→12:56)
[2017-10-06] MEDS: SODIUM CHLORIDE 0.9% FLUSH 10 ML FLUSH IV FLUSH SCH (09:16)
--- NOTE | 2017-10-06 11:45 | PD.WCN.NOT ---
Neg Pressure Wound Therapy Wound Location Wound Location: Left upper back Wound Description Length: 5.2cm Width: 13.0cm Depth: 2.7cm Tunneling: Noted at 2 O'clock depth of 2.4cm Wound bed appearance: ~75% red granulated tissue, ~10% cauterize tissue, ~5% Adipose tissue Periwound appearance: Unremarkable Settings Suction: 125 mmHg, Continuous Intensity: Low Other Information: Windowpaned, Mushroomed Foam type: Black Number of pieces: 1 Additonal Information Patient was seen today on [address] for wound vac change.Patient is alert and oriented x3.Ambulated to bathroom and showered prior to writers arrival.Left upper back surgical incision cleansed with normal saline pat dry measurements obtained.Skin prep to periwound and wound was then windowpaned to protect periwound.! piece of black sponge applied to wound base and tunnel making contact with all open area.Track pad applied ,Vac turned on to 125mmHg continuous low suction with no leaks noted.Patient tolerated wound care well was medicated for pain PO 30 minute prior. Massiel [place] [facility] Oct 06, 2017 11:45
[2017-10-06] MEDS ORDERED: LINE1TAB PO (13:24)
[2017-10-06] MEDS ORDERED: GLIM2TAB PO (13:26)
[2017-10-06] MEDS ORDERED: METF850T PO (13:26)
[2017-10-06] MEDS ORDERED: HYDR-3288 PO (13:26)
[2017-10-06] MEDS ORDERED: AMLO5TAB2 PO (13:28)
[2017-10-06] MEDS ORDERED: LISI10TA3 PO (13:28)
--- NOTE | 2017-10-06 15:28 | HHI.FF ---
Face to Face Verification Diagnosis: (1) Abscess (2) Sepsis (3) DM (diabetes mellitus) Home Health Nursing Order: Medical education Signs/symptoms of disease process Diabetic education Wound care and dressing changes Nursing assessment with vital signs Instructions: Wet to dry dressing changes twice a day until Wound vac is arranged and delivered to home. I have seen patient Nicole Antonio on 10/06/17. My clinical findings support the need for the requested home health care services because: Deconditioned w/ increased weakness Med compliance is questionable Limited ability to care for self Need for psychosocial assistance Impaired cognition/judgement High risk of falls Infection w/ risk of complications I certify that my clinical findings support that this patient is homebound because: Unsafe to leave home unassisted Need for psychosocial assistance Unable to use public transportation Wayne Gonzalez DO Oct 06, 2017 15:28
--- NOTE | 2017-10-06 15:41 | HHI.PR ---
Addendum to Inpatient Note Addendum Reason: Additional Documentation Additional Information dw Dr. Smith ok to dc home on 2 weeks of oral zyvox. Will sign off please call back if any change in clinical condition or questions. Angela Burns MD Oct 06, 2017 15:41
[2017-10-06] MEDS ORDERED: VANCOMYCIN INJ 1,750 MG in SODIUM CHLORID 0.9% 500 ML INJ 500 ML IV SCH (16:00)
--- NOTE | 2017-10-06 17:11 | HHI.FF ---
Face to Face Verification Diagnosis: (1) Abscess (2) Sepsis (3) DM (diabetes mellitus) (4) Failure of outpatient treatment Home Health Nursing Order: Medical education Signs/symptoms of disease process Diabetic education Medication education-adverse effect Wound care and dressing changes (Wet to dry dressing once a day. Family members can be taught to do it one more time per day. ) Nursing assessment with vital signs I have seen patient Nicole Antonio on 10/06/17. My clinical findings support the need for the requested home health care services because: Deconditioned w/ increased weakness Limited ability to care for self Need for psychosocial assistance High risk of falls Infection w/ risk of complications I certify that my clinical findings support that this patient is homebound because: Unsafe to leave home unassisted Need for psychosocial assistance Unable to use public transportation Wayne Gonzalez DO Oct 06, 2017 17:11
--- NOTE | 2017-10-06 19:49 | HHI.DS ---
Discharge Summary Admission Date Oct 04, 2017 at 00:53 Discharge Date: Oct 06, 2017 Admitting Diagnosis cellulitis, abscess (1) Sepsis ICD Code: A41.9 - Sepsis, unspecified organism (2) Abscess ICD Code: L02.91 - Cutaneous abscess, unspecified Status: Acute (3) Failure of outpatient treatment ICD Code: Z78.9 - Other specified health status (4) DM (diabetes mellitus) ICD Code: E11.9 - Type 2 diabetes mellitus without complications (5) Tobacco abuse ICD Code: Z72.0 - Tobacco use Procedures Left paracentral abscess I&D 10/04/2017. Wide incision and drainage with excision of necrotic skin, subcutaneous tissue, fascia and adipose tissue with application of VAC device after leaving a defect 15 x 5 cm, 2 cm deep. Brief History - From Admission This is a 52-year-old female with a PMH of HTN, DM, COPD, H/o Recurrent Abscess and Tobacco Abuse who presents the ER for a wound check. Initial presentation for c/o back pain w/ abscess, s/p I&D and d/c'd on Clinda 300mg po q6h. Returned to ER for wound re-check on 10/02/17, had 2nd abscess I&D'd and was instructed to continue w/ antibiotics. Returns today w/ ongoing symptoms. Denies fever or chills. Reports back pain, constant, severe, 8/10, non- radiating. Wound Cultures from 10/01/17 +MRSA, s/p Vanc in ER. CT Chest w/ left paracentral lateral back subcutaneous induration and small flecks of gas suggesting abscess, no drainable fluid collection. BP 188/81, HR 75, O2 sat 100 % on RA, Afebrile. WBC 14.3. GFR 67. CBC/BMP: 10/05/17 0901 10/05/17 0901 Significant Findings Laboratory Tests Test 10/03/17 21:52 10/04/17 05:12 10/04/17 21:51 10/05/17 09:01 White Blood Count 14.3 TH/MM3 (4.0-11.0) 12.6 TH/MM3 (4.0-11.0) Neutrophils (%) (Auto) 72.6 % (16.0-70.0) 78.1 % (16.0-70.0) Neutrophils # (Auto) 10.4 TH/MM3 (1.8-7.7) 9.9 TH/MM3 (1.8-7.7) Monocytes # (Auto) 1.1 TH/MM3 (0-0.9) Neutrophils # (Manual) 10.3 TH/MM3 (1.8-7.7) Toxic Granulation 2+ (NORMAL) Toxic Vacuolation PRESENT (NONE SEEN) Basophilic Stippling FAINT (NORMAL) Random Glucose 165 MG/DL (74-106) 223 MG/DL (74-106) Estimat Glomerular Filtration Rate 67 ML/MIN (>89) 79 ML/MIN (>89) Hemoglobin A1c 8.9 % (4.3-6.0) 8.8 % (4.3-6.0) Aspartate Amino Transf (AST/SGOT) 5 U/L (15-37) 8 U/L (15-37) Alanine Aminotransferase (ALT/SGPT) 9 U/L (10-53) 9 U/L (10-53) Alkaline Phosphatase 118 U/L (45-117) Total Creatine Kinase 24 U/L (26-192) C-Reactive Protein 3.40 MG/DL (0.00-0.30) Total Protein 5.9 GM/DL (6.4-8.2) 6.1 GM/DL (6.4-8.2) Albumin 2.3 GM/DL (3.4-5.0) 2.4 GM/DL (3.4-5.0) Calcium Level 8.1 MG/DL (8.5-10.1) Anion Gap 4 MEQ/L (5-15) Test 10/06/17 03:15 Vancomycin Level Trough 13.1 MCG/ML (5.0-10.0) Imaging Last Impressions Chest CT 10/03/17 0000 Signed Impressions: Service Date/Time: Tuesday, October 03, 2017 23:53 - CONCLUSION: 1. Left paracentral lateral back subcutaneous induration and small flecks of gas suggesting abscess without drainable fluid collection. 2. No focal abnormalities in the lung or mediastinum. Rivera Redd MD PE at Discharge GENERAL: Alert, oriented 3, NAD. SKIN: Warm and dry. HEAD: Normocephalic. EYES: No scleral icterus. No injection or drainage. NECK: Supple, trachea midline. No JVD or lymphadenopathy. CARDIOVASCULAR: Regular rate and rhythm without murmurs, gallops, or rubs. RESPIRATORY: Breath sounds equal bilaterally. No accessory muscle use. GASTROINTESTINAL: Abdomen soft, non-tender, nondistended. MUSCULOSKELETAL: No cyanosis, or edema. Left paracentral abscess I&D done. Dressing on with wound VAC on. BACK: Nontender without obvious deformity. No CVA tenderness Pt update on day of discharge Patient is doing well. No fever, chills. Wants to go home. Hospital Course This is a 52-year-old female with a PMH of HTN, DM, COPD, H/o Recurrent Abscess and Tobacco Abuse who presents the ER for a wound check. Initial presentation for c/o back pain w/ abscess, s/p I&D and d/c'd on Clinda 300mg po q6h. Returned to ER for wound re-check on 10/02/17, had 2nd abscess I&D'd and was instructed to continue w/ antibiotics. Wound Cultures from 10/01/17 +MRSA, s/p Vanc in ER. CT Chest w/ left paracentral lateral back subcutaneous induration and small flecks of gas suggesting abscess, no drainable fluid collection. -Sepsis (WBC 14.3, HR 92, skin abscess). -Left paracentral lateral back large abscess -Infectious disease and surgery following. Status post I&D. -Continue vancomycin (target 10-15) per infectious disease while in-patient. Zyvox for 2 weeks upon discharge. -Culture from 10/01/2017 shows MRSA growth. -Diabetes mellitus -Patient was on insulin. However she has not been taking insulin due to lack of insurance. -Creatinine within normal range. We will discharge patient on oral medications including metformin and glimepiride. -We will provide sliding scale insulin and start long-acting insulin Levemir 10 units nightly while in the hospital. -Good blood glucose 140-180. -Tobacco abuse -patient very clearly stated that she does not want to quit tobacco. I did encourage patient to quit tobacco especially postoperatively to help with wound healing. Full code. SCDs, ambulation. Discussed with ID and Surgery. Surgery recommended wet to dry dressing changes until wound vac is delivered. Home health will provide wet to dry dressing once a day and patient's family members can do another one per day. Pt Condition on Discharge: Good Discharge Disposition: Disch w/ Home Health Serv Discharge Time: > 30 minutes Discharge Instructions DIET: Follow Instructions for: Heart Healthy Diet, Diabetic Diet Activities you can perform: Regular-No Restrictions Follow up Referrals: Appointment for Follow Up @ [facility]/ with [facility] Surgical - 1 Week with Tony Hernandez MD Surgical - 1 Week @ [facility] Surgery New Medications: Amlodipine (Amlodipine) 5 Mg Tab 5 MG PO DAILY for Blood Pressure Management, #30 TAB 11 Refills Glimepiride (Glimepiride) 2 Mg Tab 2 MG PO DAILY for Blood Sugar Management, #30 TAB 3 Refills Take with breakfast or first main meal Hydrocodone-Acetaminophen ([place]) 7.5-325 mg Tab 1 TAB PO Q6H PRN for PAIN, #20 TAB 0 Refills Linezolid (Linezolid) 600 Mg Tab 600 MG PO Q12H for Infection, #28 TAB 0 Refills Lisinopril (Lisinopril) 10 Mg Tab 10 MG PO DAILY, #30 TAB 11 Refills Metformin (Metformin) 850 Mg Tab 850 MG PO BIDPC for Blood Sugar Management, #60 TAB 11 Refills Continued Medications: Bumetanide (Bumetanide) 1 Mg Tab 1 MG PO DAILY, #30 TAB 0 Refills Discontinued Medications: Clindamycin (Clindamycin) 300 Mg Cap 300 MG PO Q6H for Infection for 7 Days, #28 CAP [address] (Diclofenac Sodium DR) 75 Mg Tabdr 75 MG PO BID for Pain Management, #10 TAB 0 Refills Avoid any other anti-inflammatory while taking this medication. Wayne Gonzalez DO Oct 06, 2017 19:49
[2017-10-08] MEDS ORDERED: PHARMACY ORDERED LAB ONE (03:45)
== END 2017-10-06 17:10 | disposition home health service (06) | DRG 854 ==
LOC: NEPD 18:15 → NEDA 10-04 00:53 → NEPFCDU 10-04 02:34 → N04B 10-04 19:49 → N04A 10-04 21:41
PROVIDERS: ADMIT Hospitalist; ATTEND Hospitalist
PROC: 0JB70ZZ Excision of Back Subcutaneous Tissue and Fascia, Open Approach (ICD-10-PCS; principal; 2017-10-04 19:20)
DX: A41.9 Sepsis, unspecified organism (principal); L02.212 Cutaneous abscess of back [any part, except buttock and flank]; I10 Essential (primary) hypertension; L03.312 Cellulitis of back [any part except buttock and flank]; F17.200 Nicotine dependence, unspecified, uncomplicated; E11.9 Type 2 diabetes mellitus without complications; E66.9 Obesity, unspecified; J44.9 Chronic obstructive pulmonary disease, unspecified; B95.62 Methicillin resistant Staphylococcus aureus infection as the cause of diseases classified elsewhere
CPT/HCPCS: 71260; 76937; 80048; 80053; 80076; 80202; 82550; 82948; 83036; 83735; 84100; 84439; 84443; 85007; 85025; 85027; 86140; 88305; 93005; 94150; 96365; 96375; J0330; J1100; J1815; J1885; J2250; J2270; J2405; J2710; J3010; J3370; J7030; J7040; J7050; Q9967